=== PATIENT | male | born 1940 | race Caucasian/White ===

== ENCOUNTER → 2018-06-19 | Outpatient (CLI) | payer MEDICARE, BC ==
--- NOTE | 2018-06-19 12:54 | Diagnostic Imaging Report ---
PROCEDURE: X-RAY LUMBAR SPINE, TWO VIEWS COMPARISON: None. INDICATIONS: LOW BACK PAIN FINDINGS: The lumbar spine is in anatomic alignment without evidence of fracture, spondylolisthesis or spondylolysis. Vertebral body heights and disc spaces are maintained. Mild multilevel degenerative spurring of the spine. There are multiple pelvic clips. The paraspinal soft tissues are normal. CONCLUSION: Mild degenerative changes of the spine. Bruce Olivares D.O. Dictated by: Bruce Olivares D.O. on 06/19/2018 at 13:00 Electronically approved by: Bruce Olivares D.O. on 06/19/2018 at 13:00
== END ==
LOC: RAD 08:59
PROVIDERS: ATTEND Internal Medicine
DX: M54.5 Low back pain (principal)
CPT/HCPCS: 72100

== ENCOUNTER → 2018-07-25 | Outpatient (CLI) | payer MEDICARE, BC ==
--- NOTE | 2018-07-25 16:12 | Diagnostic Imaging Report ---
EXAMINATION: CHEST 2 VIEWS INDICATION: Cough. COMPARISON: None FINDINGS: TUBES and LINES: Left anterior chest dual lead cardiac device.. LUNGS: Lungs are well inflated. Mild chronic appearing changes in the lungs with apparent scarring along the left lateral chest wall. There is no evidence of pneumonia or pulmonary edema. PLEURA: No pleural effusion or pneumothorax. HEART AND MEDIASTINUM: The cardiomediastinal silhouette is unremarkable. BONES AND SOFT TISSUES: No acute osseous lesion. Soft tissues are unremarkable. UPPER ABDOMEN: No free air under the diaphragm. IMPRESSION: Mild chronic appearing changes in the lungs with apparent scarring along the left lateral chest wall. Signed by: Dr. Woody Silva M.D. on 07/25/2018 4:09 PM
== END ==
LOC: RAD 15:10
PROVIDERS: ATTEND Internal Medicine
DX: R05 Cough (principal); J06.9 Acute upper respiratory infection, unspecified
CPT/HCPCS: 71046

== ENCOUNTER → 2020-07-05 | Outpatient (CLI) | payer MEDICARE, BC ==
[~2020-07-05] MED LIST: DIATRIZOATE MEGL/DIATRIZOA SOD 30 ML BTL PO ONE; IOPAMIDOL 370 MG/ML 200 ML INFUS..BTL INJ ONE; SODIUM CHLORIDE 0.9% 500ML 500 ML ONE; SODIUM CHLORIDE 0.9% 50ML 50 ML ONE
[2020-07-05 11:12] LABS: CREATININE, SERUM 1.26 mg/dL (0.72-1.25)
--- NOTE | 2020-07-05 14:10 | Diagnostic Imaging Report ---
EXAM: CT Abdomen and Pelvis WITH intravenous contrast INDICATION: Left lower quadrant mass COMPARISON: None. TECHNIQUE: Abdomen and pelvis were scanned utilizing a multidetector helical scanner from the lung base to the pubic symphysis after administration of IV contrast. Coronal and sagittal reformations were obtained. Routine protocol was performed. Scan was performed during portal venous phase. IV CONTRAST: 100mL of Isovue 370 ORAL CONTRAST: Gastrografin RADIATION DOSE: Total DLP: 386 mGy*cm Dose modulation, iterative reconstruction, and/or weight based adjustment of the mA/kV was utilized to reduce the radiation dose to as low as reasonably achievable. FINDINGS: LOWER THORAX: Normal. HEPATOBILIARY: Right and left simple appearing hepatic cysts, the largest of which measures up to 3.7 cm at the dome of the liver. Nonocclusive right portal vein thrombus. Status post cholecystectomy. Dilation of the common bile duct to 13 mm, likely related to reservoir effect. SPLEEN: No splenomegaly. PANCREAS: No focal masses or ductal dilatation. ADRENALS: No adrenal nodules. KIDNEYS/URETERS: No hydronephrosis, stones, or solid mass lesions. PELVIC ORGANS/BLADDER: Status post prostatectomy. PERITONEUM / RETROPERITONEUM: No free air or fluid. LYMPH NODES: Left greater than right inguinal lymph nodes, the largest on left measuring up to 3.0 x 1.2 cm. VESSELS: Unremarkable. GI TRACT: Diverticulosis without CT evidence of diverticulitis. No abnormal bowel thickening. No bowel obstruction. BONES AND SOFT TISSUES: Unremarkable. IMPRESSION: Nonspecific left greater than right prominent bilateral inguinal lymph nodes measure up to 3.0 x 1.2 cm. Nonocclusive right portal venous thrombus. Diverticulosis without CT evidence of diverticulitis. Signed by: Roya Elias MD on 07/05/2020 2:07 PM
== END ==
LOC: CT 10:33
PROVIDERS: ATTEND Internal Medicine
DX: R10.32 Left lower quadrant pain (principal); R19.09 Other intra-abdominal and pelvic swelling, mass and lump; K57.90 Diverticulosis of intestine, part unspecified, without perforation or abscess without bleeding
CPT/HCPCS: 36415; 74177; 82565; 84520; 96360; J7040; Q9967